=== PATIENT | male | born 1965 | race Caucasian/White ===

== ENCOUNTER 2018-01-22 02:43 | Emergency (ER) | payer OTHER ==
[~2018-01-22] VITALS: Ht 172.7 cm; Wt 81.6 kg
[~2018-01-22 02:43] MED LIST: OMEPRAZOLE40 M1 PO
[2018-01-22 02:57] VITALS: BP 142/90
--- NOTE | 2018-01-22 03:07 | ED GENERAL ADULT ---
History of Present Illness General Chief Complaint: Neck/Upper Back Pain/Injury Stated Complaint: PT C/O SEVERE NECK PAIN Source: patient Exam Limitations: no limitations Vital Signs & Intake/Output Vital Signs & Intake/Output Vital Signs Date Time Temp Pulse Resp B/P B/P Pulse O2 O2 Flow FiO2 Mean Ox Delivery Rate 01/22 0257 98.3 88 16 142/90 98 Room Air Room Air Allergies Coded Allergies: NO KNOWN ALLERGIES (02/22/11) Reconcile Medications Omeprazole 40 MG CAPSULE. 1 CAP PO DAILY acid reflux Triage Note: 52yo MALE TO RM 2 W/CO L SIDED NECK PAIN THAT RADIATES TO HEAD THAT HS BEEN PRESENT SINCE SUNDAY. NO RELIEF AFTER TAKING TYLENOL Triage Nurses Notes Reviewed? yes HPI: 52-year-old male presents for left sided neck pain for 5 days. Pain radiates to the shoulder into the head when he turns his head to the left and improves when he turns his head to the right. Negative for trauma. Negative for decreased range of motion. Negative for numbness or tingling. Negative for weakness. Past History Travel History Traveled to [place] past 21 day No Medical History Any Pertinent Medical History? see below for history Neurological: NONE EENT: NONE Cardiovascular: NONE Respiratory: NONE Gastrointestinal: NONE Hepatic: NONE Renal: NONE Musculoskeletal: NONE Psychiatric: NONE Endocrine: NONE Blood Disorders: NONE Cancer(s): NONE [employer]/Reproductive: NONE Tetanus Vaccine: 11/23/14 Surgical History Surgical History: N Psychosocial History What is your primary language Mongolian Family History Hx Contributory? No Review of Systems Review of Systems Constitutional: Reports: no symptoms, see HPI. EENTM: Reports: no symptoms. Respiratory: Reports: no symptoms. Cardiovascular: Reports: no symptoms. GI: Reports: no symptoms. Genitourinary: Reports: no symptoms. Musculoskeletal: Reports: no symptoms. Skin: Reports: no symptoms. Neurological/Psychological: Reports: no symptoms. Hematologic/Endocrine: Reports: no symptoms. Immunologic/Allergic: Reports: no symptoms. All Other Systems: Reviewed and Negative Physical Exam Physical Exam General Appearance: well developed/nourished, no apparent distress, comfortable Comments: Gen.: Well-nourished, well-developed, no acute respiratory distress. Head: Normocephalic, atraumatic. Eyes: Normal inspection bilaterally Ears: Normal inspection bilaterally Nose: Normal inspection Throat/mouth : Moist mucosa Neck: Supple, full range of motion, mild tenderness upon palpation of left superior trapezius. Negative midline tenderness. Heart: Regular rate and rhythm, no murmurs rubs or gallops Lungs: Clear to auscultation bilaterally with normal air entry Chest: Nontender Back: Normal range of motion Abdomen: Soft, nontender, nondistended, normal bowel sounds Extremities: Normal range of motion grossly, equal radial pulses, no cyanosis clubbing or edema Neurologic: Cranial nerves grossly intact, speech is clear Skin: warm and dry Psychiatric: Calm, cooperative, no apparent delusions or hallucinations Core Measures ACS in differential dx? No CVA/TIA Diagnosis: No Sepsis Present: No Sepsis Focused Exam Completed? No Progress Differential Diagnoses I considered the following diagnoses in my evaluation of the patient: Muscle skeletal neck pain Plan of Care: Current Medications Sig/Eduarda Start time Last Medication Dose Stop Time Status Admin Ketorolac 30 MG ONCE ONE 01/22 300 AC Tromethamine 01/22 301 (Toradol) Initial ED EKG: none Comments: Discussed with the patient use of [id number] anti-inflammatories such as icy hot. Departure Departure Disposition: HOME OR SELF CARE Condition: Stable Clinical Impression Primary Impression: Neck pain Referrals: Lg Black MD (PCP/Family) Departure Forms: Customer Survey General Discharge Information Comments Please note that there might be incidental findings in your evaluation that are unrelated to the current emergency department visit. Please notify your primary care doctor about this emergency department visit in order to obtain and review all of the testing performed so that these incidental findings can be monitored as needed. If you had an x-ray performed, please understand that some fractures may not be seen on the initial set of x-rays. If your symptoms persist you might need a repeat set of x-rays to check for such a fracture. If you had a laceration evaluated, please understand that foreign bodies such as glass or wood may not be visible to the naked eye or on plain x-rays. If the wound becomes red, swollen, increasingly more painful or if there is any drainage from the wound, please have it reevaluated by a physician for the possibility of a retained foreign body. If you're unable to follow up as outlined in the discharge instructions please return to the emergency department. Critical Care Note Critical Care Note Critical Care Time: non-applicable
== END 2018-01-22 03:12 ==
LOC: ERH 02:43
DX: M54.2 Cervicalgia (principal)
CPT/HCPCS: 96372; J1885